=== PATIENT | male | born 1985 | race Caucasian/White ===

== ENCOUNTER 2022-09-13 23:19 | Emergency (ER) | payer OTHER, MEDICAID, SELFPAY ==
[2022-09-13 23:56] VITALS: BP 127/85; PULSE 100; RESP 17; TEMP 36.6; O2SAT 98; BMI 19.3
--- NOTE | 2022-09-14 01:07 | ED_ITS ---
HPI - Skin/Abscess/Foreign Bdy General Chief complaint: Skin/Abscess/Foreign Body Stated complaint: Both hands infected/pain Time Seen by Provider: 09/14/22 01:02 Source: patient Mode of arrival: Ambulatory History of Present Illness HPI narrative: 36-year-old male who is here for concerns of infections on his hands and also sepsis. He states that he has had worms growing in his hands for several years now. He states he read somewhere that someone was putting parasites in the water in [place] and he thinks maybe he was infected with this. Related Data Home Medications Medication Instructions Recorded Confirmed [[facility]] INH QD PRN ##0 09/03/12 oxycodone-acetaminophen 5 mg-325 1 tab PO Q4HP ##0 09/03/12 mg tablet (Percocet) Allergies Allergy/AdvReac Type Severity Reaction Status Date / Time No Known Drug Allergies Allergy Verified 09/14/22 00:03 Review of Systems Constitutional Constitutional: Reports system reviewed and no additional complaints, except as documented Musculoskeletal Musculoskeletal: Reports system reviewed and no additional complaints, except as documented Integumentary/Breasts Skin/Breast: Reports system reviewed and no additional complaints, except as documented Patient History alcohol intake frequency: 0-2 drinks per day Substance Use Type: crack/cocaine and methamphetamine Exam Initial Vital Signs Initial Vital Signs: Vital Signs Temperature 97.8 F 09/13/22 23:56 Pulse Rate 100 H 09/13/22 23:56 Respiratory Rate 17 09/13/22 23:56 Blood Pressure 127/85 09/13/22 23:56 Pulse Oximetry 98 09/13/22 23:56 Oxygen Delivery Method 09/13/22 23:56 Skin Other: Multiple wounds specifically the dorsum of both his hands in various stages of healing that have no surrounding erythema and are not draining. Extrem Other: Full range of motion of bilateral wrists and joints of his hands Course Vital Signs Vital signs: Vital Signs - 8 hr 09/13/22 23:56 09/14/22 01:32 Temperature 97.8 F Pulse Rate 100 H 95 H Respiratory Rate 17 16 Blood Pressure 127/85 130/70 Pulse Oximetry 98 100 Oxygen Delivery Method Room Air Room Air MDM - Skin/Abscess/Foreign Bdy MDM Narrative Medical decision making narrative: Patient is not septic. He has multiple wounds on the backs of his hands consistent with picking most likely related to his methamphetamine use. There is no indication for antibiotics. He does not have parasites growing out of his hands. Discharge Plan Departure Patient Disposition: Home Clinical Impression: Abrasion of skin Activity Restrictions/Additional Instructions: I recommend that you keep your hands clean with soap and water. You can also use a topical antibiotic ointment. You do issues with your teeth in you do need follow-up with a dentist. Return to the emergency department for new symptoms. Prescriptions: No Action oxycodone-acetaminophen [Percocet] 5 MG/325 MG tablet 1 tab PO Q4HP Qty: 0 [[facility]] INH QD PRN Qty: 0 Visit Report Forms: Patient Portal/API
[2022-09-14 01:32] VITALS: BP 130/70; PULSE 95; RESP 16; O2SAT 100
== END 2022-09-14 01:32 | disposition home or self-care (01) ==
PROVIDERS: Emergency Provider Emergency Medicine
DX: S60.512A Abrasion of left hand, initial encounter (principal); S60.511A Abrasion of right hand, initial encounter; X58.XXXA Exposure to other specified factors, initial encounter
CPT/HCPCS: 99281